=== PATIENT | male | born 1975 ===

== ENCOUNTER 2017-07-31 02:59 | Emergency (ER) | payer SELFPAY ==
[2017-07-31 03:15] VITALS: BP 144/87; PULSE 75; RESP 16; TEMP 98.5; O2SAT 99
[2017-07-31] MEDS ORDERED: Famotidine 20mg/50ml Premix IVPB STA (03:41)
--- NOTE | 2017-07-31 03:56 | ED PDOC ---
HPI: Abdomen Time Seen by Provider: 07/31/17 03:04 Chief Complaint (Nursing): Abdominal Pain Chief Complaint (Provider): Abdominal Pain History Per: Patient History/Exam Limitations: no limitations Onset/Duration Of Symptoms: Other (x2 weeks) Outside of [place] travel?: No Current Symptoms Are (Timing): Still Present Location Of Pain/Discomfort: Epigastric Associated Symptoms: Urinary Symptoms ((+) polyuria), Other ((+) polydipsia and weight loss) Additional Complaint(s): 42 year old male presents to ED with complaints of epigastric pain x2 weeks and has no past medical history. (+) unspecified weight loss over the last month, polyuria, and polydipsia. Patient notes seeing PCP and receiving a prescription for multiple blood tests, but has yet to complete them. PCP: Jossy Past Medical History Reviewed: Historical Data, Nursing Documentation, Vital Signs Vital Signs: Last Vital Signs Temp 98.5 F 07/31/17 03:13 Pulse 75 07/31/17 03:13 Resp 16 07/31/17 03:13 BP 144/87 07/31/17 03:13 Pulse Ox 99 07/31/17 06:29 - Medical History PMH: No Chronic Diseases - Surgical History Surgical History: No Surg Hx - Family History Family History: States: Unknown Family Hx - Social History Current smoker - smoking cessation education provided: No Ex-Smoker (has not smoked in the last 12 months): No Alcohol: None Drugs: Denies - Home Medications Home Medications: Ambulatory Orders Medication Instructions Recorded metFORMIN [glucOPHAGE] 500 mg PO BID #28 tab 07/31/17 - Allergies Allergies/Adverse Reactions: Allergies Allergy/AdvReac Type Severity Reaction Status Date / Time No Known Allergies Allergy Verified 07/31/17 03:15 Review of Systems ROS Statement: Except As Marked, All Systems Reviewed And Found Negative Constitutional: Positive for: Weight loss, Other ((+) polydipsia) Gastrointestinal: Positive for: Abdominal Pain (epigastric) Genitourinary Male: Positive for: Other ((+) polyuria) Physical Exam - Reviewed Nursing Documentation Reviewed: Yes Vital Signs Reviewed: Yes - Physical Exam Appears: Positive for: Non-toxic, No Acute Distress Skin: Positive for: Normal Color, Warm, Dry ENT: Positive for: Normal ENT Inspection Neck: Positive for: Normal Cardiovascular/Chest: Positive for: Regular Rate, Rhythm. Negative for: Murmur Respiratory: Positive for: Normal Breath Sounds. Negative for: Respiratory Distress Gastrointestinal/Abdominal: Positive for: Soft, Tenderness (epigastric tenderness). Negative for: Normal Exam Extremity: Positive for: Normal ROM. Negative for: Deformity Neurologic/Psych: Positive for: Alert, Oriented. Negative for: Motor/Sensory Deficits - Laboratory Results Result Diagrams: 07/31/17 04:09 07/31/17 04:09 - ECG O2 Sat by Pulse Oximetry: 99 (RA) Pulse Ox Interpretation: Normal Medical Decision Making Medical Decision Makin Initial impression: 42 year old male with abdominal pain Initial plan: * CTA A/P * Labs * Lipase * UDip * Pepcid 40mg IV * Accucheck * UA * Re-eval 0430 Patient's POC glucose level at 336. Indicative of new onset-diabetes. 0434 * ABG * NS IV 0500 Labs reviewed: random glucose level at 444. ABG shows no evidence of DKA. Pending CT. 0625 CT FINDINGS: Lung bases: Unremarkable. No mass nor consolidation. ABDOMEN: Liver: Unremarkable. No solid mass. Gallbladder and bile ducts: Unremarkable. No calcified stones. No ductal dilatation. Pancreas: Unremarkable. No mass. No ductal dilatation. Spleen: Unremarkable. No splenomegaly. Adrenals: Unremarkable. No mass. Kidneys and ureters: Unremarkable. No solid mass. No hydronephrosis. Stomach and bowel: Unremarkable. No bowel obstruction. No mucosal thickening. PELVIS: Appendix: No findings to suggest acute appendicitis. Bladder: Unremarkable. No mass nor stones. Reproductive: Unremarkable as visualized. ABDOMEN and PELVIS: Intraperitoneal space: Unremarkable. No free air. No significant fluid collection. Bones/joints: No acute fracture nor dislocation. Soft tissues: Unremarkable. Vasculature: Unremarkable. No abdominal aortic aneurysm. Lymph nodes: Unremarkable. No enlarged lymph nodes. IMPRESSION: No acute pathology. 0630 Results discussed with patient. Advised patient to follow up with PCP. Will start patient on Metformin to control glucose level in ED. Diet changes discussed with patient. Repeat glucose level: 304 * Metformin 1000mg PO Patient is stable for discharge home. Dx: diabetes Condition: improved Scribe Attestation: Documented by Elsa Arias acting as a scribe for Nolberto Wilson MD. Scribe Attestation: All medical record entries made by the Scribe were at my direction and personally dictated by me. I have reviewed the chart and agree that the record accurately reflects my personal performance of the history, physical exam, medical decision making, and the department course for this patient. I have also personally directed, reviewed, and agree with the discharge instructions and disposition. Disposition - Clinical Impression Clinical Impression: Diabetes mellitus - Disposition Referrals: Sakshi Fenton MD [Primary Care Provider] - Disposition: Routine/Home Disposition Time: 06:30 Condition: IMPROVED Prescriptions: metFORMIN [glucOPHAGE] 500 mg PO BID #28 tab Instructions: Type 2 Diabetes, Diabetes Diet , Blood Glucose Monitoring Forms: [facility] (Kinyarwanda) Print Language: LITHUANIAN
[2017-07-31] MEDS ORDERED: Famotidine 20mg/50ml 40 MG/100 ML BAG IVPB ONE (04:14)
[2017-07-31 04:18] LABS: BASO # 0.1 K/uL (0.0-0.2); EOS # 0.1 K/uL (0.0-0.7); EOS % 1.7 % (0.0-4.0); HEMOGLOBIN 14.1 g/dL (12.0-18.0); LYMPH # 2.4 K/uL (1.0-4.3); LYMPH % 33.4 % (20.0-40.0); MEAN CELL VOLUME 88.9 fl (80.0-94.0); MEAN CORPUSCULAR HEMOGLOBIN 31.4 pg (27.0-31.0); MEAN CORPUSCULAR HGB CONC 35.3 g/dL (33.0-37.0); MEAN PLATELET VOLUME 7.8 fl (7.2-11.7); MONO # 0.6 K/uL (0.0-0.8); MONO % 8.2 % (0.0-10.0); NEUT # 4.1 K/uL (1.8-7.0); NEUT % 55.7 % (50.0-75.0); NRBC % 0.2 % (0.0-0.0); RBC 4.49 Mil/uL (4.40-5.90); RED CELL DISTRIBUTION WIDTH 12.8 % (11.5-14.5); WHITE BLOOD COUNT 7.3 K/uL (4.8-10.8)
[2017-07-31] MEDS ORDERED: Sodium Chloride 0.9% 1,000 ML IV STA (04:27)
[2017-07-31 04:32] LABS: ALBUMIN 3.6 g/dL (3.5-5.0); ALT/SGPT 27 U/L (21-72); AST/SGOT 19 U/L (17-59); BLOOD UREA NITROGEN 17 mg/dl (9-20); GFR AFRICAN-AMERICAN > 60; GFR NON-AFRICAN AMERICAN > 60; LIPASE 96 U/L (23-300)
[2017-07-31 04:33] LABS: URINE BILIRUBIN NEGATIVE (NEGATIVE); URINE BLOOD NEGATIVE (NEGATIVE); URINE CLARITY CLEAR (Clear); URINE COLOR STRAW (YELLOW); URINE GLUCOSE (UA) >=500 mg/dL (Normal); URINE LEUKOCYTE ESTERASE NEG Leu/uL (Negative); URINE PROTEIN NEGATIVE (NEGATIVE); URINE UROBILINOGEN 0.2-1.0 mg/dL (0.2-1.0)
[2017-07-31] MEDS ORDERED: Iohexol 300 100 ML IJ ONE (04:45)
[2017-07-31] MEDS ORDERED: Sodium Chloride 0.9% 50 ML IV ONE (04:45)
[2017-07-31 04:46] LABS: ABG ALLEN TEST YES; ARTERIAL BLOOD GAS HCO3 24.4 mmol/L (21-28); ARTERIAL BLOOD GAS HEMOGLOBIN 14.3 g/dL (11.7-17.4); ARTERIAL BLOOD GAS O2 CAPACITY 19.2 mL/dL (16-24); ARTERIAL BLOOD GAS O2 CONTENT 19.1 ML/dL (15-23); ARTERIAL BLOOD GAS O2 SAT 99.5 % (95-98); ARTERIAL BLOOD GAS PCO2 43 mm/Hg (35-45); ARTERIAL BLOOD GAS PH 7.37 (7.35-7.45); ARTERIAL BLOOD GAS PO2 87 mm/Hg (80-100); ARTERIAL BLOOD GAS TCO2 26.2 mmol/L (22-28)
--- NOTE | 2017-07-31 09:56 | CT ---
PROCEDURE: CT Abdomen and Pelvis with contrast HISTORY: abd pain COMPARISON: None. TECHNIQUE: Contrast dose: 95 mL Omnipaque 300 Radiation dose: Total exam DLP = for 30.2 mGy-cm. This CT exam was performed using one or more of the following dose reduction techniques: Automated exposure control, adjustment of the mA and/or kV according to patient size, and/or use of iterative reconstruction technique. FINDINGS: LOWER THORAX: Unremarkable. LIVER: Unremarkable. No gross lesion or ductal dilatation. GALLBLADDER AND BILE DUCTS: Unremarkable. PANCREAS: Unremarkable. No gross lesion or ductal dilatation. SPLEEN: Unremarkable. ADRENALS: Unremarkable. No mass. KIDNEYS AND URETERS: Unremarkable. No hydronephrosis. No solid mass. VASCULATURE: Unremarkable. No aortic aneurysm. BOWEL: Prominent amount of retained colonic stool. No obstruction. No gross mural thickening. APPENDIX: Normal appendix. PERITONEUM: Small fat containing umbilical hernia. Small bilateral fat containing inguinal hernias. No free fluid. No free air. LYMPH NODES: Unremarkable. No enlarged lymph nodes. BLADDER: Unremarkable. REPRODUCTIVE: Unremarkable. BONES: No acute fracture. OTHER FINDINGS: None. IMPRESSION: No acute abdominal pelvic pathology. Prominent amount of retained colonic stool.
== END 2017-07-31 06:30 | disposition home or self-care (01) ==
LOC: H.ER 02:59
DX: E11.9 Type 2 diabetes mellitus without complications (principal); Z79.84 Long term (current) use of oral hypoglycemic drugs; R35.8 Other polyuria
CPT/HCPCS: 74177; 80053; 81003; 82803; 82948; 83690; 85025; 96360; 99283; J7030; Q9967